=== PATIENT | female | born 1930 | race Hispanic/Latino ===

== ENCOUNTER → 2018-11-28 | Outpatient (CLI) | payer OTHER | END | disposition home or self-care (01) | LOC: SHCH 14:22 | PROVIDERS: ATTEND Internal Medicine Cardiovascular Disease | DX: I35.0 Nonrheumatic aortic (valve) stenosis (principal) | CPT/HCPCS: 93306 ==

== ENCOUNTER 2019-06-02 11:31 | Observation (INO) | payer OTHER ==
[~2019-06-02] VITALS: Ht 162.6 cm; Wt 72.9 kg
[2019-06-02] MEDS ORDERED: CEFTRIAXONE SODIUM 2 GM VIAL ONE (12:00)
[2019-06-02] MEDS ORDERED: SODIUM CHLORIDE 0.9% 100 ML IV ONE (12:01)
[2019-06-02] MEDS ORDERED: ACETAMINOPHEN 325 MG TAB ONE (12:03)
[2019-06-02 12:13] LABS: BASOPHILS % (AUTO) 0.2 % (0.0-5.0); HEMATOCRIT 38.9 % (36-48); LYMPHOCYTES % (AUTO) 2.5 % (21.0-51.0); MEAN CORPUSCULAR HEMOGLOBIN 31.8 pg (27.0-33.0); MEAN CORPUSCULAR HGB CONC 33.6 g/dL (32.0-36.0); MEAN CORPUSCULAR VOLUME 94.6 fL (79-99); MONOCYTES % (AUTO) 9.8 % (3.0-13.0); NEUTROPHILS % (AUTO) 87.5 % (40.0-77.0); PLATELET COUNT (AUTO) 236 K/uL (130-400); RED BLOOD CELL COUNT(AUTO) 4.12 MIL/uL (4.00-5.50); RED CELL DISTRIBUTION WIDTH 13.5 % (11.0-15.5); WHITE BLOOD COUNT (AUTO) 13.3 K/uL (4.8-10.8)
[2019-06-02 12:19] LABS: CARBON DIOXIDE 30 mmol/L (21-32); CHLORIDE 97 mmol/L (101-111); CREATININE 0.7 mg/dL (0.5-1.5); GLOMERULAR FILTR. RATE CALC 84 mL/min (>60); GLUCOSE,RANDOM 142 mg/dL (70-105); POTASSIUM 3.7 mmol/L (3.5-5.1); SODIUM SERUM 134 mmol/L (136-145); UREA NITROGEN, BLOOD 15 mg/dL (7-18)
[2019-06-02 12:21] LABS: RAPID GROUP A STREP NEGATIVE (NEGATIVE)
[2019-06-02 12:23] LABS: INR 0.97 (0.85-1.15); PARTIAL THROMBOPLASTIN TIME 31.6 SEC (26.3-35.5); PROTHROMBIN TIME 10.2 SEC (9.6-11.6)
[2019-06-02 12:26] LABS: APPEARANCE,URINE Clear (CLEAR); BILIRUBIN,URINE Negative (NEGATIVE); COLOR,URINE Yellow (YELLOW); GLUCOSE, URINE (UA) Negative (NEGATIVE); KETONES,URINE 40 mg/dL (NEGATIVE); LEUKOCYTE ESTERASE ,URINE Trace (NEGATIVE); NITRATE,URINE Negative (NEGATIVE); OCCULT BLOOD,URINE Negative (NEGATIVE); PROTEIN,URINE Trace mg/dL (NEGATIVE)
[2019-06-02 12:33] LABS: ALANINE AMINOTRANSFERASE 79 U/L (12-78); ALBUMIN 2.9 g/dL (3.5-5.0); ASPARTATE AMINOTRANSFERASE 108 U/L (10-37); BILIRUBIN,TOTAL 1.4 mg/dL (0.2-1.0); CREATINE KINASE, TOTAL 55 U/L (21-232); MYOGLOBIN 60 ng/mL (10-92); TOTAL PROTEIN, SERUM 7.2 g/dL (6.0-8.3); TROPONIN I < 0.04 ng/mL (0.00-0.06)
[2019-06-02 12:39] LABS: BACTERIA,URINE Few /HPF (None Seen); SQUAMOUS EPITHELIAL CELL,UR 0-2 /HPF (0-2)
[2019-06-02] MEDS ORDERED: OSELTAMIVIR PHOSPHATE 75 MG CAP ONE (12:48)
[2019-06-02] MEDS: SODIUM CHLORIDE 0.9% 1000ML 1,000 ML IV SCH (15:08)
[2019-06-02] MEDS ORDERED: SODIUM CHLORIDE 0.9% 1000ML 1,000 ML IV SCH (15:15)
[2019-06-02] MEDS ORDERED: GUAIFENESIN-DM 200/20 MG 10 ML PO PRN (15:15)
[2019-06-02] MEDS ORDERED: MORPHINE SULFATE 4 MG/1ML SYG IV PRN (15:15)
[2019-06-02] MEDS ORDERED: ACETAMINOPHEN 325 MG TAB PO PRN ×2 (15:15)
[2019-06-02] MEDS ORDERED: LACTULOSE 20 GM/30 ML UDCUP PO PRN (15:15)
[2019-06-02] MEDS ORDERED: ONDANSETRON HCL 4 MG/2 ML VIAL IV PRN (15:15)
[2019-06-02] MEDS ORDERED: ACETAMINOPHEN-CODEINE 300/30MG TAB PO PRN (15:15)
--- NOTE | 2019-06-02 16:20 | NUR ---
LUMBAR PUNCTURE RECEIVED PT FROM THE ED FOR LP PROCEDURE. PT NOTED TO BE CONFUSED AT TIMES. REACHING FOR THE AIR. NOT ORIENTED TO TIME OR PLACE. LUMBAR PUNCTURE ATTEMPTED X [address] DALY. UNSUCCESSFUL. PT TOLERATED WITH MODERATE COMPLAINTS OF DISCOMFORT. VS STABLE, REPORT CALLED TO NURSEAMADOR RN .
[2019-06-02] MEDS ORDERED: CEFTRIAXONE SODIUM 2 GM VIAL IVP SCH (17:00)
[2019-06-02 17:05] VITALS: BP 127/71
[2019-06-02] MEDS ORDERED: SODIUM CHLORIDE 0.9% 1000ML 1,000 ML IV ONE (17:24)
[2019-06-02 17:30] VITALS: BP 158/79
[2019-06-02] MEDS ORDERED: GUAI5SYR PO (18:22)
[2019-06-02] MEDS ORDERED: LISI-613 PO (18:22)
[2019-06-02] MEDS ORDERED: NIFE30TA5 PO (18:22)
[2019-06-02] MEDS ORDERED: DONE5TAB5 PO (18:22)
[2019-06-02] MEDS ORDERED: CALC-866 PO (18:22)
[2019-06-02] MEDS ORDERED: MENT118G TP (18:22)
[2019-06-02] MEDS ORDERED: CLON0.1T PO (18:22)
[2019-06-02] MEDS ORDERED: IBUP-2353 PO (18:22)
[2019-06-02] MEDS ORDERED: TRAM50TA4 PO (18:22)
[2019-06-02 20:00] VITALS: BP 181/69
[2019-06-02] MEDS: FAMOTIDINE 20MG TAB 20 MG TAB PO SCH (21:50)
[2019-06-02] MEDS: OSELTAMIVIR PHOSPHATE 75 MG CAP PO SCH (21:50)
[2019-06-02] MEDS: CEFTRIAXONE SODIUM 2 GM VIAL IVP SCH (23:59)
[2019-06-03] VITALS (7 sets, daily range): BP systolic 126–180; BP diastolic 72–94
[2019-06-03] MEDS: SODIUM CHLORIDE 0.9% 1000ML 1,000 ML IV SCH ×3 (02:26→22:17)
[2019-06-03] MEDS: HYDRALAZINE HCL 20 MG/ML VIAL IV PRN ×2 (04:24→16:12)
--- NOTE | 2019-06-03 04:24 | NUR ---
PATIENT RESTING IN BED WITH OU CLOSED. EASILY AROUSED. BLOOD PRESSURE 196/86. APRESOLINE 5MG GIVEN IVP SLOWLY. RESP EVEN AND UNLABORED. NO SOB NOTED. ON ROOM AIR. NO COMPLAINTS OF PAIN VOICED. BED BATH GIVEN, TOLERATED WELL. TOTAL CARE RENDERED Q2H AND PRN. REPOSITIONED Q2H. HOB ELEVATED. CALL LIGHT WITHIN REACH. WILL CONTINUE TO BE OBSERVED. Addendum: 06/03/19 at 0505 by CEFERINO MARTI RN RN Amended: Links added.
[2019-06-03 05:34] LABS: BASOPHILS % (AUTO) 0.5 % (0.0-5.0); EOSINOPHILS % (AUTO) 0.2 % (0.0-8.0); HEMATOCRIT 36.1 % (36-48); LYMPHOCYTES % (AUTO) 7.6 % (21.0-51.0); MEAN CORPUSCULAR HEMOGLOBIN 32.2 pg (27.0-33.0); MEAN CORPUSCULAR HGB CONC 34.3 g/dL (32.0-36.0); MEAN CORPUSCULAR VOLUME 93.8 fL (79-99); MONOCYTES % (AUTO) 11.4 % (3.0-13.0); NEUTROPHILS % (AUTO) 80.3 % (40.0-77.0); PLATELET COUNT (AUTO) 226 K/uL (130-400); RED BLOOD CELL COUNT(AUTO) 3.84 MIL/uL (4.00-5.50); RED CELL DISTRIBUTION WIDTH 13.3 % (11.0-15.5); WHITE BLOOD COUNT (AUTO) 7.4 K/uL (4.8-10.8)
[2019-06-03 05:54] LABS: CREATININE 0.5 mg/dL (0.5-1.5); MAGNESIUM 1.8 mg/dL (1.80-2.40); POTASSIUM 3.2 mmol/L (3.5-5.1)
[2019-06-03] MEDS: ENOXAPARIN SODIUM 40 MG/0.4 ML SYRINGE SQ SCH (10:18)
[2019-06-03] MEDS: OSELTAMIVIR PHOSPHATE 75 MG CAP PO SCH ×2 (10:18→22:17)
[2019-06-03] MEDS: FAMOTIDINE 20MG TAB 20 MG TAB PO SCH ×2 (10:18→22:17)
[2019-06-03] MEDS: CEFTRIAXONE SODIUM 2 GM VIAL IVP SCH ×2 (11:58→23:21)
[2019-06-03] MEDS ORDERED: LIDOCAINE HCL-MPF 1% 2ML VIAL IVP PRN (15:00)
[2019-06-03] MEDS ORDERED: POTASSIUM CHLORIDE 10% ELIXIR 20 MEQ/15 ML UDCUP PO PRN (15:00)
[2019-06-03] MEDS ORDERED: POTASSIUM CHLORIDE 20MEQ/100ML 100 ML IV PRN (15:00)
[2019-06-03] MEDS: MAGNESIUM 2GM PREMIX 50ML 50 ML IV PRN (16:04)
--- NOTE | 2019-06-03 19:36 | NUR ---
CM Note: [employer] pending ins auth and acceptance CM spoke to Betsy, received order, clinicals, and pasrr. Stated pt will most likely need reauthorization. Will assess pt in AM. Pt pending ins auth and acceptance. Primary nurse aware. CM to cont to follow up.
--- NOTE | 2019-06-03 19:59 | NUR ---
DCP CM met with pt discussed dc plans. Pt is assist with ADL's, admitted from [facility], prior to lives at home with niece. Pt has walker, wheelchair, and shower chair at home. Pt agreeable to go back to [facility] once stable. QING signed. Faxed order, clinicals, and pasrr, confirmation received. DC plan to SNF. CM to cont to follow up. Addendum: 06/03/19 at 2000 by GILA ROMAN LVN CM Amended: Links added.
[2019-06-03] MEDS: POTASSIUM CHLORIDE 20 MEQ ERTAB PO PRN ×2 (22:18→23:19)
[2019-06-04] MEDS: IPRATROPIUM/ALBUTEROL SULFATE 3 ML SOLUTION IH PRN (03:03)
[2019-06-04 04:00] VITALS: BP 133/84
[2019-06-04] MEDS: POTASSIUM CHLORIDE 20 MEQ ERTAB PO PRN (04:10)
[2019-06-04] MEDS: DIPHENHYDRAMINE HCL 25 MG CAPSULE PO PRN ×2 (04:10→21:31)
[2019-06-04 06:08] LABS: CREATININE 0.6 mg/dL (0.5-1.5); MAGNESIUM 1.9 mg/dL (1.80-2.40); POTASSIUM 4.2 mmol/L (3.5-5.1)
[2019-06-04] MEDS: MAGNESIUM 2GM PREMIX 50ML 50 ML IV PRN (06:30)
[2019-06-04] MEDS: SODIUM CHLORIDE 0.9% 1000ML 1,000 ML IV SCH ×2 (07:08→17:40)
[2019-06-04] MEDS: OSELTAMIVIR PHOSPHATE 75 MG CAP PO SCH ×2 (08:02→20:15)
[2019-06-04] MEDS: FAMOTIDINE 20MG TAB 20 MG TAB PO SCH ×2 (08:02→20:15)
[2019-06-04] MEDS: ENOXAPARIN SODIUM 40 MG/0.4 ML SYRINGE SQ SCH (08:03)
[2019-06-04 08:10] VITALS: BP 130/90
--- NOTE | 2019-06-04 09:50 | NUR ---
DR. GREENWOOD HERE AND ASSESS PT .REGARDING CONSULTATION. PT. WAS TIMES ABLE TO FOCUS WITH DR. GREENWOOD QUESTIONS. AND THAN GET CONFUSED REGARDING ENVIROMENT NOT ABLE TO ANSWER YES OR NO TO QUESTIONS REGARDING THESPINAL TAB. DR. GREENWOOD . EXPLAIN TO HER OF THE PROCEDURE AND WHY IT WAS NEEDED . NO DIRECT ANSWER. AT THIS TIME.. STATED THAT HE WOULD SPEAK WITH THE ANESTHESIA . SO THEY COULD DO IT . .F SHE DECIDED TO HAVE IT DONE. OR CONSENT FROM FAMILY MEMBERS .
[2019-06-04] MEDS: CEFTRIAXONE SODIUM 2 GM VIAL IVP SCH ×2 (11:29→23:32)
[2019-06-04 11:57] VITALS: BP 173/83
[2019-06-04] MEDS ORDERED: COMPOUND IV MISC 1 EACH IVSOLN MISC PRN (13:30)
[2019-06-04] MEDS: ACYCLOVIR SODIUM 700 MG in SODIUM CHLORIDE 0.9% 100 ML IV SCH (14:27)
--- NOTE | 2019-06-04 15:10 | NUR ---
UNABLE TO GET RELATIVES FOR A CONSENT FOR A SPINAL TAB. . ASK CASE MANGEMENT. FAYE . FOR ANY OTHER NO. TO CALL CORINE HARRISON. CALLED . NO. OF [phone][ [phone] [ NO ANSWER . /
[2019-06-04 15:59] VITALS: BP 128/93
--- NOTE | 2019-06-04 17:21 | NUR ---
CM Note: Rebekah pending ins auth Spoke to Betsy. Pt pending ins auth at this time. Primary nurse aware. CM to cont to follow up.
--- NOTE | 2019-06-04 17:41 | NUR ---
TRYING TO GET FAMILY MEMBERS REG ARDING CONSENT . OF A SPINAL TAB. FOR PT. SHE GET CONFUSED WITH THE QUESTIONS AND IS NOT ABLE TO FOCUS WITH A YES OR NO. ANSWER TO HAVE IT DONE . PT STARTS TO ANSWER QUESTIONS BUT AFTER THAT GET CONFUSED. SHE IN NOT ABLE TO UNDERSTAND THE SPINAL TAB . PROCEDURE. STATES YES AND THAN SAYS NO. YUNIER BOSS WAS ABLE TO CALL THE [facility] . FOR FAMILY MEMBERS PHONE N0. . CALLED WITH NO ANSWER . UNABLE TO OBTAIN CONSENT . IF SHE IS ABLE TO UNDERSTAND PROCEDURE. OF THE SPINAL TAB
[2019-06-04 19:46] VITALS: BP 144/111
[2019-06-04] MEDS: HYDRALAZINE HCL 20 MG/ML VIAL IV PRN (20:15)
--- NOTE | 2019-06-04 20:15 | NUR ---
MEDS SHIFT ASSESSMENT DONE, PLEASE REFER TO CHART. DUE MEDS ADMINISTERED, TOLERATED WELL. KEPT RESTED AND COMFORTABLE. CALL LIGHT WITHIN REACH. WILL MONITOR PT. RE-ITERATED FALL PRECAUTIONS. Addendum: 06/05/19 at 0433 by LEVON SHEIKH RN RN Amended: Links added.
--- NOTE | 2019-06-04 21:31 | NUR ---
ITCHING PT COMPLAINTS OF ITCHING TO LOWER BACK. NOTED SCRATCH GARCIA BUT NO REDNESS NOR RASHES. MEDICATED WITH BENADRYL PO. LOTION APPLIED ON PT'S BACK. KEPT COMFORTABLE. ENCOURAGED TO REST AND SLEEP.
[2019-06-04 22:27] VITALS: BP 192/88
--- NOTE | 2019-06-05 | NUR ---
CONFUSED PT IS AWAKE AND TRYING TO REMOVE HER BLANKET. NOTED TO BE CONFUSED AT THIS TIME. TRIED TO RE-ORIENT PT TO TIME AND SPACE. KEPT BED ALARM ON. WILL MONITOR CLOSELY.
--- NOTE | 2019-06-05 00:45 | NUR ---
TELE TELE EDUCATION INSTRUCTOR CALLED THAT PT IS HAVING SVT THAT LASTED 5 SECONDS. PT'S BP STILL ELEVATED DESPITE HYDRALAZINE DOSE GIVEN. PAGED CARTOON ANIMATOR STAFF FOR BENCHMARK, SPOKE WITH RAZ. REFERRED PT'S CONDITION. NEW MED ORDER GIVEN. WILL MEDICATE PT.
[2019-06-05] MEDS ORDERED: HYDRALAZINE HCL 20 MG/ML VIAL IV PRN (01:00)
[2019-06-05 01:11] VITALS: BP 172/111
[2019-06-05] MEDS: ACYCLOVIR SODIUM 700 MG in SODIUM CHLORIDE 0.9% 100 ML IV SCH ×2 (02:09→13:59)
[2019-06-05] MEDS: IPRATROPIUM/ALBUTEROL SULFATE 3 ML SOLUTION IH PRN ×2 (02:48→06:15)
[2019-06-05] MEDS: SODIUM CHLORIDE 0.9% 1000ML 1,000 ML IV SCH ×2 (02:59→13:08)
[2019-06-05 04:13] VITALS: BP 144/56
--- NOTE | 2019-06-05 04:40 | NUR ---
SVT TELE CERAMIC WORKER INFORMED CENTERLESS GRINDING MACHINE ADJUSTER THAT PT HAD BEEN HAVING MULTIPLE SVT'S LASTING 6 SECONDS. PAGED RAZ, SOFTWARE TEST AND VALIDATION ENGINEER FOR HOSPITALIST, VIA ANSWERING SERVICE. RAZ CALLED BACK AND REPORTED ABNORMAL RHYTHMS. STATED TO MONITOR PT AND LOOK INTO LABS THIS AM AND TO REPLACE ELECTROLYTES WHEN NEEDED.
[2019-06-05 04:49] LABS: HEMATOCRIT 36.6 % (36-48); MEAN CORPUSCULAR HEMOGLOBIN 32.7 pg (27.0-33.0); MEAN CORPUSCULAR HGB CONC 34.7 g/dL (32.0-36.0); MEAN CORPUSCULAR VOLUME 94.1 fL (79-99); PLATELET COUNT (AUTO) 257 K/uL (130-400); RED BLOOD CELL COUNT(AUTO) 3.89 MIL/uL (4.00-5.50); RED CELL DISTRIBUTION WIDTH 13.1 % (11.0-15.5); WHITE BLOOD COUNT (AUTO) 6.9 K/uL (4.8-10.8)
[2019-06-05 05:06] LABS: PARTIAL THROMBOPLASTIN TIME 36.1 SEC (26.3-35.5); PROTHROMBIN TIME 10.5 SEC (9.6-11.6)
[2019-06-05 07:00] VITALS: BP 168/75
--- NOTE | 2019-06-05 08:00 | NUR ---
REPORT CHARGE NURSE MANOLO, INFORMED OF DR GREENWOOD'S ORDER FOR CSF EXAM PER ANESTHESIOLOGY AND OF CONSENT NOT DONE DUE TO PT'S CONFUSION. NO FAMILY MEMBER WAS LISTED AND THREE PHONE NUMBERS WERE CALLED BY AM NURSE YESTERDAY TO NO AVAIL. CHARGE NURSE CALLED OR AND SPOKE WITH STAFF AND WAS INFORMED THAT DR VILLA WILL BE NOTIFIED. REPORT GIVEN TO AM NURSE ANEL. FOR MORE CARE AND MANAGEMENT.
[2019-06-05] MEDS: ENOXAPARIN SODIUM 40 MG/0.4 ML SYRINGE SQ SCH (08:10)
[2019-06-05] MEDS: FAMOTIDINE 20MG TAB 20 MG TAB PO SCH (08:46)
[2019-06-05] MEDS: OSELTAMIVIR PHOSPHATE 75 MG CAP PO SCH (08:46)
[2019-06-05] MEDS: MAGNESIUM 2GM PREMIX 50ML 50 ML IV PRN (08:46)
[2019-06-05 11:00] VITALS: BP 175/87
--- NOTE | 2019-06-05 12:23 | NUR ---
CM Note: Rebekah Bosch ins auth and acceptance Spoke to Betsy ramirez/rebekah bosch, pt has ins auth and acceptance. Safe to transfer via [facility] transport van. Primary nurse aware to give report prior to 4pm once MD clear for DC. Primary nurse aware to change to OBS status prior to DC if pt DC today. Pt pending Dr Bashir and Dr Baker's clearance. CM to cont to follow up.
[2019-06-05 13:32] LABS: CREATININE 0.6 mg/dL (0.5-1.5); POTASSIUM 3.2 mmol/L (3.5-5.1)
[2019-06-05] MEDS: CEFTRIAXONE SODIUM 2 GM VIAL IVP SCH (14:00)
[2019-06-05 16:00] VITALS: BP 154/80
== END 2019-06-05 18:15 ==
LOC: EDH 11:31 → INTOOBSV 15:08 → OBSVTOIN 15:08 → EDHIP 15:08 → 3DH 17:27
PROVIDERS: ADMIT Internal Medicine Pulmonary Disease; ATTEND Internal Medicine Pulmonary Disease
DX: A41.9 Sepsis, unspecified organism (principal); G93.40 Encephalopathy, unspecified; E86.0 Dehydration; J10.1 Influenza due to other identified influenza virus with other respiratory manifestations; E66.9 Obesity, unspecified; I10 Essential (primary) hypertension; G03.9 Meningitis, unspecified; N39.0 Urinary tract infection, site not specified; F03.90 Unspecified dementia, unspecified severity, without behavioral disturbance, psychotic disturbance, mood disturbance, and anxiety; Z79.899 Other long term (current) drug therapy
CPT/HCPCS: 36415 ×4; 62270; 70450; 71045; 80048 ×3; 80053; 81001; 82550; 83605; 83735 ×3; 83874; 84484; 85025 ×2; 85027; 85610 ×2; 85730 ×2; 86787 ×2; 87040 ×2; 87088; 87804 ×2; 87880; 93005; 94640 ×3; 94664; 96361 ×3; 96365; 96366 ×3; 96367; 96372 ×2; 96375 ×2; 96376 ×4; 97039 ×3; 97161; 97530; 99284; G0378 ×63; G8981; G8982; G8983; J0133 ×2; J0360 ×4; J0696 ×6; J1650 ×2; J2270; J3475 ×3; J7030 ×2; Q0163 ×2

== ENCOUNTER 2019-09-13 10:21 | Inpatient (IN) | payer OTHER ==
[~2019-09-13] VITALS: Ht 157.5 cm; Wt 61.3 kg
[~2019-09-13 10:21] MED LIST: CALC-866 PO; CLON0.1T PO; DONE5TAB5 PO; GUAI5SYR PO; IBUP-2784 PO; LISI-613 PO; MENT118G TP; NIFE30TA5 PO; TRAM50TA4 PO
[2019-09-13] MEDS ORDERED: IPRATROPIUM/ALBUTEROL SULFATE 3 ML SOLUTION IH ONE ×2 (11:09→17:44)
[2019-09-13 11:33] LABS: BASOPHILS % (AUTO) 0.5 % (0.0-5.0); EOSINOPHILS % (AUTO) 0.5 % (0.0-8.0); HEMATOCRIT 37.4 % (36-48); LYMPHOCYTES % (AUTO) 9.2 % (21.0-51.0); MEAN CORPUSCULAR HEMOGLOBIN 30.1 pg (27.0-33.0); MEAN CORPUSCULAR HGB CONC 33.9 g/dL (32.0-36.0); MEAN CORPUSCULAR VOLUME 88.9 fL (79-99); MONOCYTES % (AUTO) 7.3 % (3.0-13.0); NEUTROPHILS % (AUTO) 82.5 % (40.0-77.0); PLATELET COUNT (AUTO) 413 K/uL (130-400); RED BLOOD CELL COUNT(AUTO) 4.21 MIL/uL (4.00-5.50); RED CELL DISTRIBUTION WIDTH 15.8 % (11.0-15.5); WHITE BLOOD COUNT (AUTO) 12.3 K/uL (4.8-10.8)
[2019-09-13] MEDS ORDERED: ZOSYN 3.375GM+NS 50ML 50 ML IV ONE (11:45)
[2019-09-13 11:47] LABS: INR 1.1 (0.85-1.15); PARTIAL THROMBOPLASTIN TIME 32.7 SEC (26.3-35.5); PROTHROMBIN TIME 11.5 SEC (9.6-11.6)
[2019-09-13] MEDS ORDERED: DEXAMETHASONE SOD PHOSPHATE 10MG/ML 1ML VIAL ONE (11:48)
[2019-09-13] MEDS ORDERED: SODIUM CHLORIDE 0.9% 500ML 500 ML IV ONE (11:49)
[2019-09-13 12:00] LABS: ALANINE AMINOTRANSFERASE 26 U/L (12-78); ALBUMIN 2.4 g/dL (3.5-5.0); ASPARTATE AMINOTRANSFERASE 23 U/L (10-37); BILIRUBIN,TOTAL 0.7 mg/dL (0.2-1.0); CARBON DIOXIDE 32 mmol/L (21-32); CHLORIDE 100 mmol/L (101-111); CREATINE KINASE, TOTAL 51 U/L (21-232); CREATININE 0.5 mg/dL (0.5-1.5); GLOMERULAR FILTR. RATE CALC 124 mL/min (>60); GLUCOSE,RANDOM 137 mg/dL (70-105); MYOGLOBIN 56 ng/mL (10-92); SODIUM SERUM 141 mmol/L (136-145); TOTAL PROTEIN, SERUM 7.1 g/dL (6.0-8.3); TROPONIN I < 0.04 ng/mL (0.00-0.06); UREA NITROGEN, BLOOD 8 mg/dL (7-18)
[2019-09-13 12:17] LABS: POTASSIUM 2.5 mmol/L (3.5-5.1)
[2019-09-13] MEDS ORDERED: MAGNESIUM 2GM PREMIX 50ML 50 ML IV ONE (13:20)
[2019-09-13] MEDS ORDERED: POTASSIUM CHLORIDE 20MEQ/100ML 100 ML IV ONE (13:22)
[2019-09-13 13:28] LABS: APPEARANCE,URINE Clear (CLEAR); BILIRUBIN,URINE Negative (NEGATIVE); COLOR,URINE Yellow (YELLOW); GLUCOSE, URINE (UA) Negative (NEGATIVE); KETONES,URINE Negative (NEGATIVE); LEUKOCYTE ESTERASE ,URINE Moderate (NEGATIVE); NITRATE,URINE Negative (NEGATIVE); OCCULT BLOOD,URINE Negative (NEGATIVE); PH,URINE 7.5 (5.0-8.0); PROTEIN,URINE Trace mg/dL (NEGATIVE)
[2019-09-13 14:12] LABS: BACTERIA,URINE Rare /HPF (None Seen); RBC,URINE 0-1 /HPF (0-1); SQUAMOUS EPITHELIAL CELL,UR Rare /HPF (0-2)
[2019-09-13] MEDS ORDERED: COMPOUND IV REFRIGERATED 1 EACH IVSOLN MISC PRN (17:15)
[2019-09-13] MEDS ORDERED: VANCOMYCIN PROTOCOL PER PHARMACY IV SCH (17:15)
[2019-09-13] MEDS ORDERED: HYDRALAZINE HCL 20 MG/ML VIAL IV PRN (17:15)
[2019-09-13] MEDS: VANCOMYCIN 1GM+NS 250ML 250 ML IV SCH (17:30)
[2019-09-13] MEDS: IPRATROPIUM/ALBUTEROL SULFATE 3 ML SOLUTION IH SCH ×2 (17:47→21:26)
--- NOTE | 2019-09-13 19:25 | NUR ---
Unable to complete nutrition/wt loss screening at present. Pt has advanced dementia, no family present.
[2019-09-13] MEDS ORDERED: ASPI-555 PO (19:32)
[2019-09-13] MEDS ORDERED: ATOR40TA71 PO (19:32)
[2019-09-13] MEDS ORDERED: APIX5TAB PO (19:32)
[2019-09-13] MEDS ORDERED: LACHLOT TP (19:32)
[2019-09-13] MEDS ORDERED: DILT240C46 PO (19:32)
[2019-09-13 20:00] VITALS: BP 139/72
[2019-09-13] MEDS: ZOSYN 3.375GM+NS 50ML 50 ML IV SCH (20:00)
[2019-09-13] MEDS ORDERED: LIDOCAINE HCL-MPF 1% 2ML VIAL IV PRN (21:15)
[2019-09-13] MEDS ORDERED: MAGNESIUM 2GM PREMIX 50ML 50 ML IV PRN (21:15)
[2019-09-13] MEDS ORDERED: POTASSIUM CHLORIDE 10% ELIXIR 20 MEQ/15 ML UDCUP PO PRN (21:15)
[2019-09-13] MEDS: VANCOMYCIN 0.75 GM in SODIUM CHLORIDE 0.9% 250 ML IV SCH (22:37)
[2019-09-13] MEDS: POTASSIUM CHLORIDE 20MEQ/100ML 100 ML IV PRN (23:15)
[2019-09-14] VITALS (7 sets, daily range): BP systolic 138–168; BP diastolic 65–86
[2019-09-14] MEDS: IPRATROPIUM/ALBUTEROL SULFATE 3 ML SOLUTION IH SCH ×6 (01:03→21:38)
[2019-09-14] MEDS: POTASSIUM CHLORIDE 20MEQ/100ML 100 ML IV PRN (01:39)
--- NOTE | 2019-09-14 01:51 | NUR ---
NUTRITIONAL ASSESSMENT UNABLE TO OBTAIN INFORMATION FROM PATIENT Addendum: 09/14/19 at 0202 by ROBIN PATINO RN RN Amended: Links added.
[2019-09-14] MEDS: ZOSYN 3.375GM+NS 50ML 50 ML IV SCH ×3 (03:58→20:45)
[2019-09-14 06:22] LABS: CREATININE 0.5 mg/dL (0.5-1.5); MAGNESIUM 1.9 mg/dL (1.80-2.40); POTASSIUM 3.6 mmol/L (3.5-5.1)
--- NOTE | 2019-09-14 09:30 | NUR ---
DYSPHAGIA EVAL COMPLETED. +S/S OF ASPIRATION WITH THIN LIQUIDS VIA STRAW. RECOMMEND MECHANICAL SOFT/CHOPPED, THIN LIQUIDS (NO STRAW, PILLS CRUSHED WITH APPLESAUCE). Addendum: 09/14/19 at 1309 by LIZET SANFORD, [facility] Amended: Links added.
[2019-09-14] MEDS: POTASSIUM CHLORIDE 20 MEQ ERTAB PO PRN ×2 (10:45→13:01)
[2019-09-14] MEDS ORDERED: SODIUM CHLORIDE 0.9% 250 ML IV ONE (10:56)
[2019-09-14] MEDS: VANCOMYCIN 1GM+NS 250ML 250 ML IV SCH (12:11)
--- NOTE | 2019-09-14 13:47 | NUR ---
DCP CM met with pt discussed dc plans. Pt is assist with ADL's, admission from [facility], prior to lives at home w/nahid. Pt has a walker and wheelchair. Denies any other equipments/services. [facility] able to assist with transportation and needs as necessary. Pt agreeable to go back to [facility] once stable, QING signed. DC plan to SNF. CM to cont to follow up. Addendum: 09/14/19 at 1349 by GILA ROMAN LVN CM Amended: Links added.
--- NOTE | 2019-09-14 14:50 | NUR ---
DC PLAN FOLLOW UP QING SIGNED, CLINICALS AND PASRR FAXED TO [facility]. PER ELENA, FACILITY CONSUMER INSIGHT MANAGER, RECEIVED EMAIL AND FAX. DC PLAN RETURN TO SNF ONCE STABLE.
--- NOTE | 2019-09-14 15:20 | NUR ---
[facility] CONSULT PATIENT ASSESSED REQUESTED: PATIENT PRESENTS WITH STAGE II PRESSURE ULCER TO LEFT HEEL; WOUND SITE MEASURED AND [facility] RECOMMENDATIONS SUBMITTED. Addendum: 09/15/19 at 0918 by BRIANNA CONKLIN LVN Amended: Links added.
--- NOTE | 2019-09-14 16:14 | NUR ---
RD NOTIFICATION Dx: Pneumonia, Hypokalemia. Hx: Advanced Dementia. Diet: Mechanical soft/chopped/ thin liquids- heart healthy. PO intake 100% and has good appetite. LBM: not able to determine. Family not present during time of visit. Pt is tolerating mechanical soft textures well at this time- during visit pt was observed. No complaints of N/V/D. RD recommends continue current diet Offer Glucerna BID Monitor LBM, LABS, PO INTAKE AND APPETITE RD will continue to monitor and f/u as needed Addendum: 09/14/19 at [address] Amended: Links added.
[2019-09-14] MEDS: VANCOMYCIN 0.75 GM in SODIUM CHLORIDE 0.9% 250 ML IV SCH (20:45)
[2019-09-15] MEDS: IPRATROPIUM/ALBUTEROL SULFATE 3 ML SOLUTION IH SCH ×6 (01:29→21:25)
[2019-09-15 03:00] VITALS: BP 121/87
[2019-09-15] MEDS ORDERED: DONE5TAB3 PO (04:34)
[2019-09-15] MEDS ORDERED: CLONIDINE HCL 0.1 MG TABLET PO PRN (04:45)
[2019-09-15] MEDS ORDERED: TRAMADOL HCL 50 MG TABLET PO PRN (04:45)
[2019-09-15] MEDS ORDERED: GUAIFENESIN-DM 200/20 MG 10 ML PO PRN (04:45)
[2019-09-15] MEDS ORDERED: IBUPROFEN 200 MG TAB PO PRN (04:45)
[2019-09-15] MEDS: ZOSYN 3.375GM+NS 50ML 50 ML IV SCH ×3 (04:45→21:09)
[2019-09-15 04:46] LABS: HEMATOCRIT 30.4 % (36-48); MEAN CORPUSCULAR HEMOGLOBIN 30.4 pg (27.0-33.0); MEAN CORPUSCULAR VOLUME 89.3 fL (79-99); PLATELET COUNT (AUTO) 358 K/uL (130-400); RED CELL DISTRIBUTION WIDTH 15.9 % (11.0-15.5); WHITE BLOOD COUNT (AUTO) 10.9 K/uL (4.8-10.8)
[2019-09-15 05:11] LABS: CREATININE 0.6 mg/dL (0.5-1.5)
[2019-09-15 05:13] LABS: POTASSIUM 2.9 mmol/L (3.5-5.1)
[2019-09-15] MEDS: POTASSIUM CHLORIDE 20MEQ/100ML 100 ML IV PRN (05:23)
[2019-09-15 05:53] LABS: BAND NEUTROPHILS % (MANUAL) 1 % (0-2); LYMPHOCYTES % (MANUAL) 8 % (22-44); MAN.DIFF COMMENT-IMPRESSION MANUAL DIFFERENTIAL; MONOCYTES % (MANUAL) 6 % (2-9); SEGMENTED NEUTROPHILS % 85 % (40-70)
[2019-09-15 05:54] LABS: PLATELET MORPHOLOGY COMMENT ADEQUATE
[2019-09-15 08:00] VITALS: BP 145/70
[2019-09-15] MEDS: APIXABAN 5 MG TABLET PO SCH ×2 (09:50→21:07)
[2019-09-15] MEDS: ASPIRIN 81 MG EC TAB PO SCH (09:50)
[2019-09-15] MEDS: LISINOPRIL 20 MG TABLET PO SCH (09:50)
[2019-09-15] MEDS: POTASSIUM CHLORIDE 20 MEQ ERTAB PO PRN ×2 (09:50→15:12)
--- NOTE | 2019-09-15 11:53 | NUR ---
CM Note: Rebekah pending ins auth Spoke to Betsy w/Rebekah Bosch pt currently pending ins auth at this time. EMS filled out, pending to be faxed w/current date, flagged in chart. Primary nurse aware. CM to cont to follow up.
[2019-09-15 12:00] VITALS: BP 144/86
[2019-09-15] MEDS: VANCOMYCIN 0.75 GM in SODIUM CHLORIDE 0.9% 250 ML IV SCH (15:09)
[2019-09-15 16:00] VITALS: BP 137/79
[2019-09-15 19:00] VITALS: BP 144/79
[2019-09-15] MEDS ORDERED: DONEPEZIL HCL 5 MG TAB PO SCH (21:00)
[2019-09-15] MEDS ORDERED: ATORVASTATIN CALCIUM 40 MG TABLET PO SCH (21:00)
[2019-09-15] MEDS ORDERED: HONEY 1 APPL/ML TUBE TP ONE (22:30)
[2019-09-15 23:00] VITALS: BP 148/76
[2019-09-16] MEDS: IPRATROPIUM/ALBUTEROL SULFATE 3 ML SOLUTION IH SCH ×4 (01:25→13:51)
[2019-09-16 03:00] VITALS: BP 156/86
[2019-09-16] MEDS: ZOSYN 3.375GM+NS 50ML 50 ML IV SCH ×2 (05:03→11:25)
[2019-09-16 05:29] LABS: CREATININE 0.6 mg/dL (0.5-1.5); MAGNESIUM 1.7 mg/dL (1.80-2.40); PHOSPHORUS 2.5 mg/dL (2.5-4.9); POTASSIUM 3.7 mmol/L (3.5-5.1)
[2019-09-16 05:38] LABS: BASOPHILS % (AUTO) 0.8 % (0.0-5.0); EOSINOPHILS % (AUTO) 4.7 % (0.0-8.0); MEAN CORPUSCULAR HEMOGLOBIN 30.3 pg (27.0-33.0); MEAN CORPUSCULAR HGB CONC 33.6 g/dL (32.0-36.0); MEAN CORPUSCULAR VOLUME 89.9 fL (79-99); MONOCYTES % (AUTO) 6.7 % (3.0-13.0); NEUTROPHILS % (AUTO) 74.8 % (40.0-77.0); PLATELET COUNT (AUTO) 352 K/uL (130-400); RED BLOOD CELL COUNT(AUTO) 3.56 MIL/uL (4.00-5.50); WHITE BLOOD COUNT (AUTO) 6.4 K/uL (4.8-10.8)
[2019-09-16] MEDS ORDERED: VANCOMYCIN 0.75 GM in SODIUM CHLORIDE 0.9% 250 ML IV SCH (06:00)
[2019-09-16 08:45] VITALS: BP 164/89
[2019-09-16] MEDS ORDERED: HONEY 1 APPL/ML TUBE TP SCH ×2 (09:00)
--- NOTE | 2019-09-16 10:30 | NUR ---
AUTH REC FOR [facility] ADVISED RN, EMS FORMS IN THE CHART FROM YESTERDAY
[2019-09-16] MEDS: ASPIRIN 81 MG EC TAB PO SCH (10:42)
[2019-09-16] MEDS: APIXABAN 5 MG TABLET PO SCH (10:43)
[2019-09-16] MEDS: LISINOPRIL 20 MG TABLET PO SCH (10:43)
[2019-09-16 11:00] VITALS: BP 148/54
[2019-09-16] MEDS ORDERED: MAGNESIUM 2GM PREMIX 50ML 50 ML IV ONE (12:00)
--- NOTE | 2019-09-16 15:40 | NUR ---
REPORT CALLED IN EARLIER AND TALKED TO SALOME FITZPATRICK RN. PT. NOW DISCHARGED VIA EMS. COPY OF CHART SEND WITH EMS STAFF. PRIOR TO DC REMOVED SALINE LOCK AND CHANGED DRESSING TO LT. HEEL, PICTURES TAKEN AND PLACED IN CHART.
[2019-09-23] MEDS ORDERED: SANTO TP (02:48)
[2019-09-23] MEDS ORDERED: ACET-3194 PO (02:48)
== END 2019-09-16 15:40 | DRG 70 ==
LOC: EDH 10:21 → EDHIP 16:05 → 3DH 16:55
PROVIDERS: ADMIT Internal Medicine; ATTEND Internal Medicine
DX: G93.41 Metabolic encephalopathy (principal); J15.9 Unspecified bacterial pneumonia; N39.0 Urinary tract infection, site not specified; I48.20 Chronic atrial fibrillation, unspecified; E44.0 Moderate protein-calorie malnutrition; Y95 Nosocomial condition; E87.6 Hypokalemia; E78.5 Hyperlipidemia, unspecified; E83.42 Hypomagnesemia; F03.90 Unspecified dementia, unspecified severity, without behavioral disturbance, psychotic disturbance, mood disturbance, and anxiety; I10 Essential (primary) hypertension; M19.90 Unspecified osteoarthritis, unspecified site; Z79.01 Long term (current) use of anticoagulants; Z86.73 Personal history of transient ischemic attack (TIA), and cerebral infarction without residual deficits
CPT/HCPCS: 36415; 71045; 80048; 80053; 80202; 81001; 82550; 82948; 83605; 83735; 83874; 83880; 84100; 84132; 84145; 84484; 85025; 85610; 85730; 87040; 87088; 92610; 93005; 94640; 94664; 94667; 94668; 97039; G0378; J1100; J2543; J3370; J3475; J3480; J3490; J7030; J7040